=== PATIENT | male | born 1965 | race Caucasian/White ===

== ENCOUNTER 2018-12-07 08:10 | Emergency (ER) | payer BC ==
[2018-12-07] MEDS ORDERED: Meclizine 25 MG Tab PO ONE (08:48)
--- NOTE | 2018-12-07 08:52 | EDM.PDOC ---
ED HPI GENERAL MEDICAL PROBLEM - General Chief Complaint: General Stated Complaint: VERY DIZZY Time Seen by Provider: 12/07/18 08:32 Source of Information: Reports: Patient, Family, RN Notes Reviewed History Limitations: Reports: No Limitations - History of Present Illness INITIAL COMMENTS - FREE TEXT/NARRATIVE: 53-year-old gentleman presents emergency department today complaint of dizziness , states he had an episode yesterday morning resolved by afternoon. This particular event today he awoke this morning was severely dizzy had 1 bout of emesis the dizziness has improved he is able to ambulate but he doesn't slowly with no loss of balance. - Related Data Allergies Allergy/AdvReac Type Severity Reaction Status Date / Time No Known Allergies Allergy Verified 06/05/14 09:34 Home Meds: Home Meds Sildenafil [Viagra] 50 mg PO ASDIRECTED PRN 06/05/14 [History] Meclizine [Antivert] 25 mg PO Q6H PRN #30 tab 12/07/18 [Rx] Past Medical History HEENT History: Reports: Impaired Vision - Infectious Disease History Infectious Disease History: Reports: Chicken Pox - Past Surgical History Musculoskeletal Surgical History: Reports: Other (See Below) Other Musculoskeletal Surgeries/Procedures:: back and knee surgery Social & Family History - Tobacco Use Smoking Status *Q: Current Every Day Smoker Years of Tobacco use: 20 Packs/Tins Daily: 0.5 - Caffeine Use Caffeine Use: Reports: Coffee - Recreational Drug Use Recreational Drug Use: No ED ROS GENERAL - Review of Systems Review Of Systems: See Below (She) Constitutional: Reports: No Symptoms HEENT: Reports: Vertigo Respiratory: Reports: No Symptoms Cardiovascular: Reports: No Symptoms GI/Abdominal: Reports: Nausea, Vomiting Neurological: Reports: Dizziness. Denies: Difficulty Walking ED EXAM, GENERAL - Physical Exam Exam: See Below Free Text/Narrative:: Cranial nerves II test with pupillary light reflex 4 mm to 3 mm bilaterally, CN III test pupillary constriction, lid elevation and eye abduction bilaterally, CN IV downward movement of eyes bilaterally, CN V good jaw movement, CN lateral deviation of the eyes bilaterally to finger movement, CN VII symmetrical smile shows teeth without difficulty, CN VIII pass finger rub to ears bilaterally, CN IX adequate voice and tone, CN X adequate voice and tone no difficulty swallowing, CN XI can shrug shoulders without difficulty, CN XII can stick tongue out without difficulty, cranial nerves II to XII intact as tested, power is 5 out 5 in upper and lower extremities, can do finger to nose without difficulty, no dysdiadochokinesis, no difficulty with rapid alternating movements can do [id number] without difficulty, Romberg is negative, has adequate gait can do heel to toe, , no focal neurologic deficit Exam Limited By: No Limitations General Appearance: Alert, WD/WN, No Apparent Distress Respiratory/Chest: No Respiratory Distress, Lungs Clear, Normal Breath Sounds, No Accessory Muscle Use, Chest Non-Tender Cardiovascular: Regular Rate, Rhythm, No Murmur Course - Vital Signs Last Recorded V/S: Last Vital Signs Temp 94.3 F L 12/07/18 08:27 Pulse 52 L 12/07/18 11:13 Resp 16 12/07/18 08:27 BP 122/85 12/07/18 11:13 Pulse Ox 100 12/07/18 08:27 - Orders/Labs/Meds Orders: Active Orders 24 hr Category Date Time Status EKG Documentation Completion [RC] ASDIRECTED Care 12/07/18 09:12 Active Peripheral IV Care [RC] . DIRECTED Care 12/07/18 09:12 Active Sodium Chloride 0.9% [Normal Saline] 1,000 ml Med 12/07/18 09:15 Active IV ASDIRECTED Sodium Chloride 0.9% [Normal Saline] 100 ml Med 12/07/18 09:45 Active IV ASDIRECTED Sodium Chloride 0.9% [Saline Flush] Med 12/07/18 09:11 Active 10 ml FLUSH ASDIRECTED PRN Peripheral IV Insertion Adult [OM.PC] Urgent Oth 12/07/18 09:11 Ordered EKG 12 Lead [EK] Urgent Ther 12/07/18 09:11 Ordered Medication Orders Sodium Chloride (Normal Saline) 1,000 mls @ 500 mls/hr IV ASDIRECTED OJ Last Admin: 12/07/18 09:25 Dose: 500 mls/hr Sodium Chloride (Normal Saline) 100 mls @ 3.5 mls/sec IV ASDIRECTED OJ Last Admin: 12/07/18 10:07 Dose: 4 mls/sec Sodium Chloride (Saline Flush) 10 ml FLUSH ASDIRECTED PRN PRN Reason: Keep Vein Open Last Admin: 12/07/18 10:07 Dose: 10 ml Admin: 12/07/18 09:27 Dose: 10 ml Labs: Laboratory Tests 12/07/18 12/07/18 Range/Units 09:21 09:21 WBC 9.3 (4.5-11.0) K/uL RBC 5.05 (4.30-5.90) M/uL Hgb 15.3 H (12.0-15.0) g/dL Hct 45.7 (40.0-54.0) % MCV 91 (80-98) fL MCH 30 (27-31) pg MCHC 34 (32-36) % Plt Count 244 (150-400) K/uL Neut % (Auto) 77 H (36-66) % Lymph % (Auto) 16 L (24-44) % Jenkins % (Auto) 6 (2-6) % Eos % (Auto) 1 L (2-4) % Baso % (Auto) 0 (0-1) % Sodium 137 L (140-148) mmol/L Potassium 4.3 (3.6-5.2) mmol/L Chloride 101 (100-108) mmol/L Carbon Dioxide 29 (21-32) mmol/L Anion Gap 11.3 (5.0-14.0) mmol/L BUN 19 H (7-18) mg/dL Creatinine 1.0 (0.8-1.3) mg/dL Est Cr Clr Drug Dosing TNP Estimated GFR (MDRD) > 60 (>60) Glucose 102 (74-106) mg/dL Calcium 9.1 (8.5-10.1) mg/dL Total Bilirubin 0.6 (0.2-1.0) mg/dL AST 18 (15-37) U/L ALT 31 (12-78) U/L Alkaline Phosphatase 92 (46-116) U/L Total Protein 7.3 (6.4-8.2) g/dL Albumin 4.0 (3.4-5.0) g/dL Globulin 3.3 (2.3-3.5) g/dL Albumin/Globulin Ratio 1.2 (1.2-2.2) Meds: Medications Generic Name Dose Route Start Last Admin Trade Name Freq PRN Reason Stop Dose Admin Sodium Chloride 1,000 mls @ 500 mls/hr 12/07/18 09:15 12/07/18 09:25 Normal Saline IV 500 mls/hr ASDIRECTED OJ Administration Sodium Chloride 100 mls @ 3.5 mls/sec 12/07/18 09:45 12/07/18 10:07 Normal Saline IV 4 mls/sec ASDIRECTED OJ Administration Sodium Chloride 10 ml 12/07/18 09:11 12/07/18 10:07 Saline Flush FLUSH 10 ml ASDIRECTED PRN Administration Keep Vein Open Discontinued Medications Generic Name Dose Route Start Last Admin Trade Name Morales PRN Reason Stop Dose Admin Iopamidol 100 ml 12/07/18 09:31 12/07/18 10:08 Isovue-370 (76%) IV 12/07/18 09:32 100 ml . DIRECTED ONE Administration Lorazepam 0.5 mg 12/07/18 11:40 12/07/18 12:16 Ativan IVPUSH 12/07/18 11:41 0.5 mg ONETIME ONE Administration Meclizine HCl 25 mg 12/07/18 08:48 12/07/18 09:13 Antivert PO 12/07/18 08:49 25 mg ONETIME ONE Administration Departure - Departure Time of Disposition: 12:48 Disposition: Home, Self-Care 01 Condition: Fair Clinical Impression: Dizzy - Discharge Information Instructions: Dizziness, [id number] Referrals: PCP,None [Primary Care Provider] - Forms: ED Department Discharge Additional Instructions: Use her meclizine as needed for dizzy symptoms, Please followup with your primary care provider in 3-5 days if not better, please call return to the emergency department with worsening of symptoms. Your medications have been faxed to [facility], physical therapy does have a program to help with dizziness which is something to consider - My Orders Last 24 Hours: My Active Orders 12/07/18 09:11 Sodium Chloride 0.9% [Saline Flush] 10 ml FLUSH ASDIRECTED PRN Peripheral IV Insertion Adult [OM.PC] Urgent EKG 12 Lead [EK] Urgent 12/07/18 09:12 EKG Documentation Completion [RC] ASDIRECTED Peripheral IV Care [RC] . DIRECTED 12/07/18 09:15 Sodium Chloride 0.9% [Normal Saline] 1,000 ml IV ASDIRECTED 12/07/18 09:45 Sodium Chloride 0.9% [Normal Saline] 100 ml IV ASDIRECTED - Assessment/Plan Last 24 Hours: My Active Orders 12/07/18 09:11 Sodium Chloride 0.9% [Saline Flush] 10 ml FLUSH ASDIRECTED PRN Peripheral IV Insertion Adult [OM.PC] Urgent EKG 12 Lead [EK] Urgent 12/07/18 09:12 EKG Documentation Completion [RC] ASDIRECTED Peripheral IV Care [RC] . DIRECTED 12/07/18 09:15 Sodium Chloride 0.9% [Normal Saline] 1,000 ml IV ASDIRECTED 12/07/18 09:45 Sodium Chloride 0.9% [Normal Saline] 100 ml IV ASDIRECTED Plan: Assessment Acuity = acute Site and laterality = dizzy Etiology = unclear etiology Manifestations = none Location of injury = Home Lab values = CBC, CMP unremarkable CTA and head scan negative EKG demonstrates sinus rhythm Plan He had some relief with meclizine provided therefore prescription written for [facility] 25 mg by mouth every 6 hours when necessary total #30 him follow-up with his primary care in 3-5 days for further evaluation if no improvement This note was dictated using [employer] voice recognition software please call with any questions on syntax or grammar.
[2018-12-07] MEDS ORDERED: Sodium Chloride 0.9% 1,000 ML IV SCH (09:15)
[2018-12-07] MEDS: Sodium Chloride 0.9% 10 ML Syringe FLUSH PRN ×2 (09:27→10:07)
[2018-12-07] MEDS ORDERED: Iopamidol 755 Mg/ML 100 ML Bottle IV ONE (09:31)
[2018-12-07] MEDS ORDERED: Sodium Chloride 0.9% 100 ML IV SCH (09:45)
--- NOTE | 2018-12-07 10:55 | CT ---
Head wo Cont CLINICAL HISTORY: Dizziness COMPARISON: None TECHNIQUE: Transverse scans were obtained from the base of the skull through the vertex without IV contrast on a multislice, multidetector CT scanner. Auto dosage reduction and iterative reconstruction techniques employed. FINDINGS: No focal abnormal parenchymal density is identified. There is no mass effect, hemorrhage, or extraaxial collection. The basal cisterns and sulci over the convexities are normal. The ventricles are normal for age. IMPRESSION: No acute intracranial process
--- NOTE | 2018-12-07 11:00 | CT ---
Ang Head CLINICAL HISTORY: Dizziness. COMPARISON: None TECHNIQUE: Multiple volume rendered and MIP 3D reconstructions were generated from source images obtained on a spiral scanner before and after intravenous iodinated contrast enhancement Auto dosage reduction and iterative reconstruction techniques employed. FINDINGS: Internal carotid arteries: Normal course and contour Anterior cerebral arteries: Normal course and contour. The anterior communicating artery is not definitively identified. Middle cerebral arteries: Normal course and contour Posterior cerebral arteries: Normal course and contour. The posterior communicating arteries are patent bilaterally. Vertebral/basilar arteries: Normal course and contour IMPRESSION: No evidence of significant stenosis or vessel cut off. No aneurysm identified
[2018-12-07] MEDS ORDERED: LORazepam 2 MG/ML SDV IVPUSH ONE (11:40)
[2018-12-07 12:20] VITALS: BP 122/85
== END 2018-12-07 13:30 | disposition home or self-care (01) ==
LOC: JP.ED 08:10
DX: R42 Dizziness and giddiness (principal); F17.210 Nicotine dependence, cigarettes, uncomplicated
CPT/HCPCS: 36415; 70450; 70496; 80053; 85025; 93005; 96361; 96374; 99284; A9270; J2060; J7030; Q9967

== ENCOUNTER 2025-02-25 04:57 | Emergency (ER) | payer BC, OTHER ==
[2025-02-25 05:59] VITALS: BP 131/74; PULSE 77
== END 2025-02-25 05:45 | disposition home or self-care (01) ==
LOC: JP.ED 04:57
DX: L50.9 Urticaria, unspecified (principal); F17.200 Nicotine dependence, unspecified, uncomplicated
CPT/HCPCS: 99282; 99283; A9270